=== PATIENT | female | born 1980 | race Caucasian/White ===

== ENCOUNTER 2017-10-11 15:55 | Inpatient (IN) | payer OTHER ==
[2017-10-11] MEDS ORDERED: ONDANSETRON HCL/PF 2 MG/ML VIAL IV PRN ×2 (16:32→17:06)
[2017-10-11] MEDS ORDERED: LIDOCAINE HCL 50 ML VIAL PERI PRN (16:32)
[2017-10-11] MEDS ORDERED: RINGER'S SOLUTION,LACTATED 1,000 ML IV ONE (16:32)
[2017-10-11] MEDS ORDERED: OXYTOCIN/DEXTROSE 5%-WATER 30 UNITS/500 ML BAG IV ONE ×2 (16:32→22:49)
[2017-10-11] MEDS ORDERED: CALCIUM CARBONATE 500 MG TAB.CHEW PO PRN (16:43)
[2017-10-11] MEDS ORDERED: NALOXONE HCL 1 MG/1 ML SYRG IV PRN (17:06)
[2017-10-11] MEDS ORDERED: BUPIVACAINE HCL/0.9 % NACL/PF 250 ML EP PRN (17:06)
[2017-10-11] MEDS ORDERED: fentaNYL CITRATE/PF 50 MCG/ML AMPUL IT SCH (17:15)
[2017-10-11] MEDS: DEXTROSE 5%-LACTATED RINGERS 1,000 ML IV PRN ×2 (17:46→21:45)
--- NOTE | 2017-10-11 18:10 | OR ---
Anesthesia Procedure Note - Anesthesia Procedure Note Narrative: Vital Signs - Last Taken Temp 37.2 C 10/11/17 17:32 Pulse 94 10/11/17 17:32 Resp 20 10/11/17 17:32 BP 136/72 10/11/17 17:32 Pulse Ox 100 10/11/17 17:32 10/11/17 18:09 ANESTHESIA PROCEDURE NOTE Date of Procedure: 10/11/2017 Time of procedure: 1750. Performed by: Bhargav Ch CRNA X Ray Inspector: None. Preprocedure diagnosis: Active labor. Post procedure diagnosis: Same. Procedure: Insertion of labor epidural. Indications: The patient is a 37 -year-old multigravida female in active labor requesting labor epidural for pain management. Findings: See below. Details of the procedure: The patient was placed in a sitting position. Back was prepped with DuraPrep. Patient was then draped in a sterile fashion. Lidocaine 1% was infiltrated to the skin and subcutaneous tissues at the level of the L3 4 interspace. The epidural space was identified using a 18-gauge Tuohy needle with [id number] technique. 20 mcg fentanyl was given intrathecally using a 27 ga. spinal needle. Epidural catheter was inserted without difficulty. Negative test dose was elicited using 5 mL of 1.5% preservative-free lidocaine plus epinephrine 1 200,000. The epidural catheter was then taped and secured in place. EBL: Minimal. Fluids: N/A. Specimen: N/A. Post procedure condition: The patient tolerated the procedure well. No complications were noted. Thank you for this consultation. H[place] CRNA
[2017-10-11] MEDS ORDERED: CITRIC ACID/SODIUM CITRATE 60 ML BTL PO ONE (21:11)
--- NOTE | 2017-10-11 21:43 | PN ---
Progess Note - Interim Narrative: 10/11/17 21:41 Patient comfortable with epidural Vital signs stable. Pitocin at 6 mu/min. FHT: 130 baseline, reassuring Contractions q 2-3 min Cervix: 8/90/-1, AROM-clear Impression: Intrauterine at 37-1/7 weeks in labor Plan: Anticipate normal spontaneous vaginal delivery soon
[2017-10-11] MEDS ORDERED: SENNOSIDES 8.6 MG TABLET PO PRN (22:49)
[2017-10-11] MEDS ORDERED: oxyCODONE HCL/ACETAMINOPHEN 1 TAB TABLET PO PRN (22:49)
[2017-10-11] MEDS ORDERED: HYDROCORTISONE 30 APPL TUBE TP PRN (22:49)
[2017-10-11] MEDS ORDERED: BENZOCAINE/MENTHOL 81 SPRAY CAN TP PRN (22:49)
[2017-10-11] MEDS ORDERED: BISACODYL 10 MG SUPP.RECT RC PRN (22:49)
[2017-10-11] MEDS ORDERED: GLYCERIN/WITCH HAZEL LEAF 40 APPL BOX TP PRN (22:49)
--- NOTE | 2017-10-11 22:49 | OR ---
Operative Report - Dictated Report Narrative: Spontaneous vaginal delivery of viable male at 2127 on 10/11/2017 with Apgars 8 and 9, weighing 2729 g and WENCESLAO position. Cord clamping delayed approximately 1 minute Placenta delivered complete, intact, with three vessel cord Estimated blood loss: less than 50 ml Lacerations: First degree vaginal laceration with no repair History for Definition: * The number of deliveries resulting in a live the patient experienced prior to current hospitalization * The previous delivery of live twins or any live multiple gestation is considered one live event. *If primagravida or nulliparous is documented select zero for the number of previous live births. Live Events: 3
[2017-10-11] MEDS ORDERED: CITRIC ACID/SODIUM CITRATE 60 ML BTL PO PRN (22:50)
[2017-10-12] MEDS: IBUPROFEN 800 MG TABLET PO PRN ×4 (00:11→21:04)
[2017-10-12] MEDS: PRENATAL VITS96/IRON FUM/FOLIC 1 TAB TABLET PO SCH ×2 (00:55→09:11)
[2017-10-12] MEDS: oxyCODONE HCL/ACETAMINOPHEN 1 TAB TABLET PO PRN (05:37)
[2017-10-12] MEDS: IRON POLYSACCHARIDE COMPLEX 1 CAP CAPSULE PO SCH ×2 (09:10→20:56)
[2017-10-12] MEDS: DOCUSATE SODIUM 100 MG CAPSULE PO SCH ×2 (09:10→20:56)
--- NOTE | 2017-10-12 15:56 | PN ---
Subjective - Date and Time Seen Date: 10/12/17 Time: 15:55 Objective - Vitals Vitals: Last Vital Signs Temp 36.6 C 10/12/17 15:14 Pulse 110 H 10/12/17 15:14 Resp 18 10/12/17 15:14 BP 128/61 10/12/17 15:14 Pulse Ox 97 10/12/17 15:14 Patient denies complaints. Lochia wnl Abdomen - soft, nontender Uterus - firm, at umbilicus - 1 No calf tenderness Impression: day #1 - s/p spontaneous vaginal delivery. Plan: Continue routine care Cauti Physician Documentation - Urinary Catheter Management Urethral ([facility]) Date of Insertion: 10/11/17 Time of Insertion: 18:05
[2017-10-13] MEDS: IRON POLYSACCHARIDE COMPLEX 1 CAP CAPSULE PO SCH ×2 (09:04→20:21)
[2017-10-13] MEDS: IBUPROFEN 800 MG TABLET PO PRN ×3 (09:04→23:46)
[2017-10-13] MEDS: DOCUSATE SODIUM 100 MG CAPSULE PO SCH ×2 (09:04→20:21)
[2017-10-13] MEDS: PRENATAL VITS96/IRON FUM/FOLIC 1 TAB TABLET PO SCH (09:04)
--- NOTE | 2017-10-13 16:48 | PN ---
Subjective - Date and Time Seen Date: 10/13/17 Time: 16:47 Objective - Vitals Vitals: Last Vital Signs Temp 36.7 C 10/13/17 12:50 Pulse 99 10/13/17 12:50 Resp 16 10/13/17 12:50 BP 131/65 10/13/17 12:50 Pulse Ox 96 10/13/17 12:50 Patient denies complaints. Lochia wnl Abdomen - soft, nontender Uterus - firm, at umbilicus - 2 No calf tenderness Impression: day #2 - s/p spontaneous vaginal delivery. Autoimmune neutropenia-stable. Advanced maternal age. Anemia-stable. Obesity-stable uterine fibroids-stable. Plan: Routine discharge instructions. Mom will board for baby since he is on IV antibiotics due to neutropenia Cauti Physician Documentation - Urinary Catheter Management Urethral ([facility]) Date of Insertion: 10/11/17 Time of Insertion: 18:05
[2017-10-13 18:57] VITALS: BP 142/66
[2017-10-13] MEDS: oxyCODONE HCL/ACETAMINOPHEN 1 TAB TABLET PO PRN (23:47)
== END 2017-10-13 23:56 | disposition home or self-care (01) | DRG 775 ==
LOC: OB 15:55
PROVIDERS: ADMIT Obstetrics & Gynecology; ATTEND Obstetrics & Gynecology
PROC: 10E0XZZ Delivery of Products of Conception, External Approach (ICD-10-PCS; principal; 2017-10-11)
PROC: 10907ZC Drainage of Amniotic Fluid, Therapeutic from Products of Conception, Via Natural or Artificial Opening (ICD-10-PCS; 2017-10-11)
PROC: 4A1HXCZ Monitoring of Products of Conception, Cardiac Rate, External Approach (ICD-10-PCS; 2017-10-11)
PROC: 00HU33Z Insertion of Infusion Device into Spinal Canal, Percutaneous Approach (ICD-10-PCS; 2017-10-11)
DX: O99.02 Anemia complicating childbirth (principal); Z68.41 Body mass index [BMI] 40.0-44.9, adult; D50.8 Other iron deficiency anemias; O70.0 First degree perineal laceration during delivery; D25.1 Intramural leiomyoma of uterus; O99.214 Obesity complicating childbirth; E66.01 Morbid (severe) obesity due to excess calories; Z3A.37 37 weeks gestation of pregnancy; Z37.0 Single live birth